=== PATIENT | female | born 1990 | race Caucasian/White ===

== ENCOUNTER 2017-04-12 20:18 | Emergency (ER) | payer OTHER ==
[2017-04-12 20:34] VITALS: BP 104/63
[2017-04-12] MEDS ORDERED: Clindamycin CAP* 150 MG PO ONE (20:46)
[2017-04-12] MEDS ORDERED: Acetaminop/Codeine 30 MG TAB* 1 TAB (300 MG/30 MG) PO ONE (20:47)
--- NOTE | 2017-04-12 20:54 | UC ---
Dental HPI - HPI Summary HPI Summary: dental pain x 3 days pain and swelling of the right lower back molar, very painful to chew, not better with Tylenol or ibuprofen no fever no chills . - History of Current Complaint Chief Complaint: UCDentalProblem Stated Complaint: DENTAL COMPLAINT Time Seen by Provider: 04/12/17 20:36 Hx Obtained From: Patient Hx Last Menstrual Period: 03/29/17 Onset/Duration: Gradual Onset, Lasting Days - 3, Still Present Severity: Severe Aggravating: Cold, Chewing Alleviating: Nothing Dental: 1 - pain , tenderness - Allergies/Home Medications Allergies/Adverse Reactions: Allergies Allergy/AdvReac Type Severity Reaction Status Date / Time Amoxicillin Allergy Severe throat Verified 04/12/17 20:35 swelling Penicillin V Allergy Severe throat Verified 04/12/17 20:35 swelling Home Medications: Home Medications Ibuprofen TAB* [Advil TAB*] 200 mg PO ONCE 04/12/17 [History Confirmed 04/12/17] PMH/Surg Hx/FS Hx/Imm Hx Previously Healthy: Yes - Surgical History Surgical History: None - Family History Known Family History: Negative: Diabetes - Social History Alcohol Use: None Substance Use Type: None Smoking Status (MU): Light Every Day Tobacco Smoker Type: Cigarettes Amount Used/How Often: 1/4-1/2 ppd Review of Systems Constitutional: Negative Skin: Negative Eyes: Negative ENT: Dental Pain Respiratory: Negative Cardiovascular: Negative All Other Systems Reviewed And Are Negative: Yes Physical Exam Triage Information Reviewed: Yes Appearance: Well-Appearing, No Pain Distress, Well-Nourished Vital Signs: Initial Vital Signs Temp 98.5 F 04/12/17 20:30 Pulse 94 04/12/17 20:30 Resp 15 04/12/17 20:30 BP 104/63 04/12/17 20:30 Pulse Ox 100 04/12/17 20:30 Vital Signs Reviewed: Yes Eyes: Positive: Conjunctiva Clear ENT Exam: Normal ENT: Positive: Normal ENT inspection, Hearing grossly normal Dental: Positive: Percussion Tenderness @ - #29,, Gross Decay/Caries @ - #29 Neck: Positive: Supple, Nontender, No Lymphadenopathy Respiratory: Positive: Chest non-tender, Lungs clear, Normal breath sounds Cardiovascular: Positive: RRR, No Murmur, Pulses Normal Dental Complaint Course/Dx - Differential Dx/Diagnosis Provider Diagnoses: dental pain Discharge - Discharge Plan Condition: Stable Disposition: HOME Prescriptions: Acetaminop/Codeine 30 MG TAB* [Tylenol/Codeine 30 MG TAB*] 1 tab PO Q6H PRN #20 tab MDD 4 PRN Reason: Pain Clindamycin Cap(NF) [Cleocin 300 mg Cap(NF)] 300 mg PO Q6H #40 cap Patient Education Materials: Toothache (ED) Referrals: Liam Celestin MD [Primary Care Provider] - 7 Days Additional Instructions: follow up with your dentist joe
== END 2017-04-12 21:00 | disposition home or self-care (01) ==
LOC: UCCORT 20:18
DX: K08.89 Other specified disorders of teeth and supporting structures (principal); Z88.0 Allergy status to penicillin; F17.210 Nicotine dependence, cigarettes, uncomplicated
CPT/HCPCS: 99212; A9270-GY; G0463

== ENCOUNTER 2017-05-01 14:25 | Emergency (ER) | payer OTHER ==
[2017-05-01 14:45] VITALS: BP 104/61
--- NOTE | 2017-05-01 15:11 | UC ---
Dental HPI - HPI Summary HPI Summary: complaint of dental pain in right lower jaw that started 2 nights ago right ear pain that started last night took clindamycin and finished 4-5 days ago unable to eat solids d/t pain sensitive to heat and cold severe pain when she closes her jaw taking ibuprofen with some relief, using ambesol has dental appt on 05/05/17 - History of Current Complaint Chief Complaint: UCDentalProblem Stated Complaint: RE-CK DENTAL COMPLAINT Time Seen by Provider: 05/01/17 15:01 Hx Obtained From: Patient Hx Last Menstrual Period: 04/07/17 - Allergies/Home Medications Allergies/Adverse Reactions: Allergies Allergy/AdvReac Type Severity Reaction Status Date / Time Amoxicillin Allergy Severe throat Verified 05/01/17 14:45 swelling Penicillin V Allergy Severe throat Verified 05/01/17 14:45 swelling PMH/Surg Hx/FS Hx/Imm Hx Previously Healthy: No - dental abscess - Surgical History Surgical History: None - Family History Known Family History: Negative: Diabetes - Social History Occupation: Employed Full-time Lives: With Family Alcohol Use: None Substance Use Type: None Smoking Status (MU): Light Every Day Tobacco Smoker Type: Cigarettes Amount Used/How Often: 10/02-09/30 ppd Cessation Counseling: Patient Advised to Stop Review of Systems Constitutional: Negative Skin: Negative Eyes: Negative ENT: Dental Pain Respiratory: Negative Cardiovascular: Negative Gastrointestinal: Negative Genitourinary: Negative Motor: Negative Neurovascular: Negative Musculoskeletal: Negative Neurological: Negative Psychological: Negative All Other Systems Reviewed And Are Negative: Yes Physical Exam Triage Information Reviewed: Yes Appearance: No Pain Distress, Well-Nourished Vital Signs: Initial Vital Signs Temp 99.1 F 05/01/17 14:41 Pulse 61 05/01/17 14:41 Resp 16 05/01/17 14:41 BP 104/61 05/01/17 14:41 Pulse Ox 97 05/01/17 14:41 Vital Signs Reviewed: Yes Eyes: Positive: Conjunctiva Clear ENT: Positive: Pharynx normal, TMs normal Dental: Positive: Gross Decay/Caries @ - between 28-29 Neck: Positive: No Lymphadenopathy Respiratory: Positive: Lungs clear, Normal breath sounds, No respiratory distress, No accessory muscle use Cardiovascular: Positive: RRR, No Murmur, Pulses Normal Abdomen Description: Positive: Nontender, Soft Bowel Sounds: Positive: Present Musculoskeletal: Positive: No Edema Neurological Exam: Normal Psychological Exam: Normal Skin Exam: Normal Dental Complaint Course/Dx - Course 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 #3 in 2017- no other narcotic use in 2017 - Differential Dx/Diagnosis Differential Diagnosis/Dx: Dental Abscess, Dental Caries Provider Diagnoses: dental decay/abscess tooth 29 Discharge - Discharge Plan Condition: Stable Disposition: HOME Prescriptions: Clindamycin Cap(NF) [Cleocin 300 mg Cap(NF)] 300 mg PO TID #21 cap oxyCODONE/Acetamin 5/325 MG* [Percocet 5/325 TAB*] 1 tab PO Q4H PRN #10 tab MDD 6 PRN Reason: Pain (Dental) Patient Education Materials: Dental Abscess (ED) Referrals: Sofi Mcnally MD [Primary Care Provider] - Additional Instructions: Please start antibiotic as directed Increase fluids and rest Take percocet for 1.5 days then switch to ibuprofen for pain Please review your discharge instructions. keep dental appointment If your symptoms do not improve please call your primary care provider or return to urgent care.
== END 2017-05-01 15:20 | disposition home or self-care (01) ==
LOC: UCCORT 14:25
DX: K02.9 Dental caries, unspecified (principal); K04.7 Periapical abscess without sinus; Z88.0 Allergy status to penicillin; F17.210 Nicotine dependence, cigarettes, uncomplicated
CPT/HCPCS: 99212; G0463

== ENCOUNTER 2022-06-07 15:40 | Inpatient (IN) ==
[2022-06-07] MEDS ORDERED: Lactated Ringers 1000 ml BAG 1,000 ML IV ONE ×2 (16:17→17:32)
[2022-06-07] MEDS ORDERED: Buffered Lidocaine 1% SYRIN 1 ml INTRADERM ONE (16:17)
[2022-06-07 16:42] LABS: Hematocrit 36 % (35-47); Hemoglobin 11.6 g/dL (12.0-16.0); Mean Corpuscular HGB Conc 33 g/dL (31-36); Mean Corpuscular Hemoglobin 28 pg (27-31); Mean Corpuscular Volume 86 fL (80-97); Mean Platelet Volume 7.2 fL (7.4-10.4); Platelet Count 354 10^3/uL (150-450); Red Blood Count 4.12 10^6 /uL (3.70-4.87); Red Cell Distribution Width 13 % (10-15); White Blood Count 12.6 10^3/uL (3.5-10.8)
[2022-06-07 16:44] LABS: ABS Basophils 0.1 10^3/ul (0-0.2); ABS Lymphocytes 2.3 10^3/ul (1.0-4.8); ABS Monocytes 0.6 10^3/ul (0-0.8); ABS Neutrophils 9.6 10^3/ul (1.5-7.7); Eosinophil % 0.4 %; Lymphocyte % 18.5 %
[2022-06-07] MEDS ORDERED: OBEPIDURAL (200 ML) 200 ML EPIDURAL ONE (16:52)
[2022-06-07] MEDS ORDERED: Vancomycin per Pharmacy 1 EA NOTE FOLLOW UP PRN (17:10)
[2022-06-07] MEDS: Lactated Ringers 1000 ml BAG 1,000 ML IV SCH ×3 (17:23→22:04)
[2022-06-07] MEDS ORDERED: Phenylephrine 40 mcg/mL 10mL (400mcg) SYRINGE IV PUSH PRN ×2 (17:32)
[2022-06-07] MEDS ORDERED: Lactated Ringers 1000 ml BAG 500 ML IV PRN (17:32)
[2022-06-07] MEDS ORDERED: Sodium Citrate/Citric Acid LIQ 15 ML UDC PO PRN (17:32)
[2022-06-07] MEDS ORDERED: OBEPIDURAL (200 ML) 200 ML EPIDURAL SCH (18:00)
[2022-06-07] MEDS ORDERED: Vancomycin 1,500 MG in NS 0.9% 250 ml 250 ML IVPB ONE (18:00)
[2022-06-07] MEDS ORDERED: Lactated Ringers 1000 ml BAG 1,000 ML IV SCH ×3 (18:00→23:00)
[2022-06-07 19:18] LABS: Urine Appearance Clear; Urine Bilirubin Negative (Negative); Urine Blood Trace (Intact) (Negative); Urine Color Yellow; Urine Glucose Negative (Negative); Urine Ketones 2+ (40mg/dL) (Negative); Urine Nitrite Negative (Negative); Urine Protein Negative (Negative); Urine Specific Gravity 1.025 (1.005-1.030); Urine Urobilinogen 0.2 (Negative) (Negative)
[2022-06-07 19:22] LABS: Urine Bacteria Absent (Absent); Urine Red Blood Cell 1+(3-5/hpf) (Absent); Urine Squamous Epithelial Cell Present (Absent); Urine White Blood Cell Trace(0-5/hpf) (Absent)
[2022-06-07 19:33] LABS: Urine Benzodiazepine Screen None Detected (None Detect); Urine Cannabinoids Screen Presumptive Positive (None Detect); Urine Opiates Screen None Detected (None Detect)
[2022-06-07] MEDS ORDERED: Dibucaine 1% OINT 28.35 GM TUBE PR PRN (22:35)
[2022-06-07] MEDS ORDERED: Glycerin ADULT 2.4 gm SUPP PR PRN (22:35)
[2022-06-07] MEDS ORDERED: Witch Hazel PAD JAR TOPICAL PRN (22:35)
[2022-06-07] MEDS ORDERED: Oxytocin in LR 20,000 MILLI.UNIT/1,000 ML BAG IV SCH (22:45)
[2022-06-08] MEDS ORDERED: Oxytocin 10 UNITS/ML 1 ML VIAL ONE (01:53)
[2022-06-08] MEDS ORDERED: Vancomycin 1,250 MG in NS 0.9% 250 ml 250 ML IVPB SCH (02:00)
[2022-06-08 07:28] LABS: ABS Lymphocytes 2.2 10^3/ul (1.0-4.8); ABS Monocytes 0.7 10^3/ul (0-0.8); ABS Neutrophils 12.8 10^3/ul (1.5-7.7); Eosinophil % 0.3 %; Hematocrit 30 % (35-47); Hemoglobin 10.4 g/dL (12.0-16.0); Lymphocyte % 13.8 %; Mean Corpuscular HGB Conc 34 g/dL (31-36); Mean Corpuscular Hemoglobin 30 pg (27-31); Mean Corpuscular Volume 86 fL (80-97); Mean Platelet Volume 7.3 fL (7.4-10.4); Platelet Count 290 10^3/uL (150-450); Red Blood Count 3.52 10^6 /uL (3.70-4.87); Red Cell Distribution Width 13 % (10-15); White Blood Count 15.7 10^3/uL (3.5-10.8)
[2022-06-08] MEDS: Buprenorphine 2 mg SL TAB PO SCH (08:46)
[2022-06-08] MEDS ORDERED: Tetan/Diph/Pertus SYR(Tdap) 0.5 ML SYR(BOOSTRIX) use SYR contains LATEX IM ONE (09:00)
[2022-06-08] MEDS ORDERED: Vancomycin Trough Check NOTE FOLLOW UP ONE (17:30)
[2022-06-09] MEDS: Buprenorphine 2 mg SL TAB PO SCH (09:06)
[2022-06-09 11:22] VITALS: BP 118/69
[2022-06-09] MEDS ORDERED: Tetan/Diph/Pertus SYR(Tdap) 0.5 ML SYR(BOOSTRIX) use SYR contains LATEX IM ONE (11:48)
== END 2022-06-09 16:00 | disposition home or self-care (01) | DRG 560 ==
LOC: MCHOBOUT 15:40 → MCHOB 16:17
PROVIDERS: ADMIT Obstetrics & Gynecology; ATTEND Obstetrics & Gynecology